=== PATIENT | male | born 1980 | race Caucasian/White ===

== ENCOUNTER → 2023-07-06 | Emergency (ER) | payer OTHER ==
[~2023-07-06] VITALS: Ht 172.7 cm; Wt 85.0 kg
[~2023-07-06] MED LIST: BICT1TAB PO
[2023-07-06 14:45] LABS: ALANINE AMINOTRANSFERASE 34 U/L (12-78); ALBUMIN/GLOBULIN RATIO 0.9 (1.1-1.5); ALKALINE PHOSPHATASE 47 IU/L (46-116); ANION GAP 9 (8-16); ASPARTATE AMINO TRANSFERASE 18 U/L (10-37); BILIRUBIN,TOTAL 0.4 MG/DL (0.1-1.0); BLOOD UREA NITROGEN 14 MG/DL (7-18); BUN/CREATININE RATIO 12.1 (10.0-20.0); CALCIUM 9.1 MG/DL (8.5-10.1); CHLORIDE 102 MMOL/L (99-107); CREATININE 1.16 MG/DL (0.60-1.10); GLUCOSE 96 MG/DL (70-104); SODIUM 140 MMOL/L (135-145); TOTAL CARBON DIOXIDE 29.2 MMOL/L (24-32); TOTAL PROTEIN 8.4 G/DL (6.4-8.2); eCRCL 80 ML/MIN; eGFR 69 ML/MIN
[2023-07-06 15:58] LABS: HIV ANTIBODY 1&2 RAPID NON-REACTIVE (Neg)
== END | disposition home or self-care (01) ==
LOC: ER 12:50
DX: S61.432A Puncture wound without foreign body of left hand, initial encounter (principal); X58.XXXA Exposure to other specified factors, initial encounter; Y93.89 Activity, other specified; Y92.89 Other specified places as the place of occurrence of the external cause; Y99.8 Other external cause status
CPT/HCPCS: 36415; 80053; 86703; 86704; 86705; 86803; 87522; 99283